=== PATIENT | male | born 1995 | race Caucasian/White ===

== ENCOUNTER 2016-09-22 15:36 | Emergency (ER) | payer SELFPAY ==
[2016-09-22 16:28] LABS: Eosinophils % (Auto) 2.3 % (0.0-4.3); Hematocrit 44.4 % (35.5-45.6); Hemoglobin 15.1 gm/dl (11.8-15.2); Mean Corpuscular HGB Conc 34 % (32-34); Mean Corpuscular Hemoglobin 31 pg (28-32); Mean Corpuscular Volume 90 fl (84-94); Platelet Count 193 K/mm3 (140-440); Red Blood Count 4.92 M/mm3 (3.65-5.03); Red Cell Distribution Width 13.4 % (13.2-15.2); White Blood Count 10.6 K/mm3 (4.5-11.0)
[2016-09-22 16:31] LABS: Urine Drugs of Abuse Note Disclamer
[2016-09-22 16:33] LABS: Anion Gap 18 mmol/L; Blood Urea Nitrogen 21 mg/dL (9-20); Calcium 9.7 mg/dL (8.4-10.2); Carbon Dioxide 27 mmol/L (22-30); Chloride 101.4 mmol/L (98-107); Glucose 72 mg/dL (75-100); Potassium 4.7 mmol/L (3.6-5.0); Sodium 142 mmol/L (137-145)
[2016-09-22 16:49] LABS: Bacteria,Urine 1+ /HPF (Negative); Bilirubin,Urine NEG (Negative); Blood,Urine NEG (Negative); Ketones,Urine TR mg/dL (Negative); Leukocyte Esterase,Urine NEG (Negative); Mucus,Urine 3+ /HPF; Nitrite,Urine NEG (Negative); Urobilinogen,Urine < 2.0 mg/dL (<2.0)
--- NOTE | 2016-09-22 16:51 | Emergency Department Report ---
ED Psych HPI - General Chief Complaint: Psych Stated Complaint: CESAR EVMINAL Time Seen by Provider: 09/22/16 16:49 Source: family Mode of arrival: Ambulatory - History of Present Illness Initial Comments: Patient is a 21-year-old male who is brought in by his parents for concern for suicidal ideation. Patient denies suicidal ideation he states that he hears voices from "time to time". Patient was recently incarcerated and try to commit suicide patient has never been seen by psychiatrist. He states that he is in no pain and the voices told him to do "all sorts of things." Further history is limited by patient refusing to speak. History obtained from father states that patient tries to cut himself at home and he is afraid that if he goes home that he'll try to kill himself. - Related Data Home Medications Medication Instructions Recorded Confirmed Last Taken No Known Home Medications [No 09/22/16 09/22/16 Unknown Reported Home Medications] Allergies Allergy/AdvReac Type Severity Reaction Status Date / Time No Known Allergies Allergy Verified 09/22/16 15:58 ED Review of Systems ROS: Stated complaint: MH EVAL Other details as noted in HPI Constitutional: denies: chills, fever Eyes: denies: eye pain, eye discharge, vision change ENT: denies: ear pain, throat pain Respiratory: denies: cough, shortness of breath, wheezing Cardiovascular: denies: chest pain, palpitations Endocrine: no symptoms reported Gastrointestinal: denies: abdominal pain, nausea, diarrhea Genitourinary: denies: urgency, dysuria Musculoskeletal: denies: back pain, joint swelling, arthralgia Skin: denies: rash, lesions Neurological: denies: headache, weakness, paresthesias Psychiatric: anxiety, auditory hallucinations. denies: homicidal thoughts, suicidal thoughts Hematological/Lymphatic: denies: easy bleeding, easy bruising ED Past Medical Hx - Past Medical History Previous Medical History?: Yes Hx Psychiatric Treatment: Yes - Surgical History Past Surgical History?: No - Social History Smoking Status: Current Every Day Smoker Substance Use Type: None - Medications Home Medications: Home Medications Medication Instructions Recorded Confirmed Last Taken Type No Known Home Medications [No 09/22/16 09/22/16 Unknown History Reported Home Medications] ED Physical Exam - General Limitations: No Limitations General appearance: alert, in no apparent distress, anxious - Head Head exam: Present: atraumatic, normocephalic - Eye Eye exam: Present: normal appearance, EOMI - ENT ENT exam: Present: normal exam - Neck Neck exam: Present: normal inspection - Respiratory Respiratory exam: Present: normal lung sounds bilaterally - Cardiovascular Cardiovascular Exam: Present: regular rate, normal rhythm - GI/Abdominal GI/Abdominal exam: Present: soft - Rectal Rectal exam: Present: deferred - Extremities Exam Extremities exam: Present: normal inspection, full ROM - Neurological Exam Neurological exam: Present: alert, CN II-XII intact. Absent: motor sensory deficit - Psychiatric Psychiatric exam: Present: agitated, anxious, flat affect. Absent: suicidal ideation - Skin Skin exam: Present: warm, dry ED Course Vital Signs 09/22/16 15:55 Temperature 97.7 F Pulse Rate 69 Respiratory 16 Rate Blood Pressure 101/67 O2 Sat by Pulse 100 Oximetry - Reevaluation(s) Reevaluation #1: 09/22/16 19:38 Patient became more combative and states that he wants to leave by speaking with father and given patient's history of recent suicide wall place a 1013 on patient and have him evaluated by the mental health worker to see if he can go home. Reevaluation #2: 09/22/16 23:44 Discussed with mental health worker patient will be except to [place]. He is in no acute distress but is still agitated. ED Medical Decision Making - Lab Data Result diagrams: 09/22/16 16:04 09/22/16 16:04 Laboratory Results - last 24 hr 09/22/16 09/22/16 09/22/16 16:04 16:04 16:04 WBC 10.6 RBC 4.92 Hgb 15.1 Hct 44.4 MCV 90 MCH 31 MCHC 34 RDW 13.4 Plt Count 193 Lymph % (Auto) 41.9 H Ware % (Auto) 8.8 H Eos % (Auto) 2.3 Baso % (Auto) 1.0 Lymph # 4.4 Ware # 0.9 H Eos # 0.2 Baso # 0.1 Seg Neutrophils % 46.0 Seg Neutrophils # 4.9 Sodium 142 Potassium 4.7 Chloride 101.4 Carbon Dioxide 27 Anion Gap 18 BUN 21 H Creatinine 1.2 Estimated GFR > 60 BUN/Creatinine Ratio 17.50 Glucose 72 L Calcium 9.7 Urine Color Urine Turbidity Urine pH Ur Specific [place] Urine Protein Urine Glucose (UA) Urine Ketones Urine Blood Urine Nitrite Urine Bilirubin Urine Urobilinogen Ur Leukocyte Esterase Urine WBC (Auto) Urine RBC (Auto) U Epithel Cells (Auto) Urine Bacteria (Auto) Urine Mucus Urine Opiates Screen Urine Methadone Screen Ur Barbiturates Screen Ur Phencyclidine Scrn Ur Amphetamines Screen U Benzodiazepines Scrn Urine Cocaine Screen U Marijuana (THC) Screen Drugs of Abuse Note Plasma/Serum Alcohol < 0.01 09/22/16 09/22/16 16:27 16:27 WBC RBC Hgb Hct MCV MCH MCHC RDW Plt Count Lymph % (Auto) Ware % (Auto) Eos % (Auto) Baso % (Auto) Lymph # Ware # Eos # Baso # Seg Neutrophils % Seg Neutrophils # Sodium Potassium Chloride Carbon Dioxide Anion Gap BUN Creatinine Estimated GFR BUN/Creatinine Ratio Glucose Calcium Urine Color Yellow Urine Turbidity Clear Urine pH 6.0 Ur Specific [place] 1.032 H Urine Protein 30 mg/dl Urine Glucose (UA) Neg Urine Ketones Tr Urine Blood Neg Urine Nitrite Neg Urine Bilirubin Neg Urine Urobilinogen < 2.0 Ur Leukocyte Esterase Neg Urine WBC (Auto) 3.0 Urine RBC (Auto) 4.0 U Epithel Cells (Auto) 1.0 Urine Bacteria (Auto) 1+ Urine Mucus 3+ Urine Opiates Screen Presumptive negative Urine Methadone Screen Presumptive negative Ur Barbiturates Screen Presumptive negative Ur Phencyclidine Scrn Presumptive negative Ur Amphetamines Screen Presumptive negative U Benzodiazepines Scrn Presumptive negative Urine Cocaine Screen Presumptive negative U Marijuana (THC) Screen Presumptive positive Drugs of Abuse Note Disclamer Plasma/Serum Alcohol - Medical Decision Making Chief medical diagnosis: Substance induced mood disorder Differential medical diagnosis: Psychosis, alcohol intoxication, bipolar disorder. We'll get CBC CMP urine drug screen UA ethanol level and will get mental health evaluation. We'll place 1013 on patient due to history of prior suicide attempts patient is not open with a history of suicidal ideation he states that "I don't want to talk about it "when brought up patient is also becoming agitated and appears to be reacting to internal stimuli will have patient be evaluated by mental worker. Critical care attestation.: If time is entered above; I have spent that time in minutes in the direct care of this critically ill patient, excluding procedure time. ED Disposition Clinical Impression: Substance induced mood disorder Disposition: [id number]/TX-[id number] PSY HOSP/PSY UNIT Is pt being admited?: No Does the pt Need Aspirin: No Condition: Stable Time of Disposition: 23:43
[2016-09-22] MEDS ORDERED: HALDOL IM ONE (19:03)
[2016-09-22] MEDS ORDERED: ATIVAN IM ONE (19:04)
[2016-09-23 04:59] VITALS: BP 110/88
== END 2016-09-23 08:00 ==
LOC: ED 15:36 → EEVIPCON 15:36 → ED 09-23 08:00
DX: F15.94 Other stimulant use, unspecified with stimulant-induced mood disorder (principal); F17.200 Nicotine dependence, unspecified, uncomplicated
CPT/HCPCS: 36415; 80048; 80307; 81001; 85025; 96372; 99285; G0480; J1630; 80320

== ENCOUNTER 2019-03-23 00:13 | Emergency (ER) | payer SELFPAY ==
[2019-03-23 01:03] VITALS: BP 134/81
== END 2019-03-23 00:50 | disposition left against medical advice (07) ==
LOC: ED 00:13
DX: F41.9 Anxiety disorder, unspecified (principal); Z53.21 Procedure and treatment not carried out due to patient leaving prior to being seen by health care provider

== ENCOUNTER 2020-11-28 10:17 | Emergency (ER) | payer OTHER ==
[2020-11-28 10:22] VITALS: BP 122/83
[2020-11-28] MEDS ORDERED: NEOMY 3.5 MG/BACIT 400 UNITS/POLY B 5000 UNITS/GM OINT PACKET TP ONE (10:38)
[2020-11-28] MEDS ORDERED: TETANUS,DIPH,PERTUSS(ACELL) VACCINE 0.5 ML SYRINGE IM ONE (10:38)
--- NOTE | 2020-11-28 10:43 | Emergency Department Report ---
- General Chief Complaint: Wound/Laceration Stated Complaint: LEFT HAND LACERATION/X 2 DAYS AGO Time Seen by Provider: 11/28/20 10:32 Source: patient Mode of arrival: Ambulatory Limitations: No Limitations - History of Present Illness Initial Comments: Patient is a 25-year-old male presents emergency room complaints of lacerations present to the right digits that occurred 2 days ago. Patient states he was cutting an apple vertically and accidentally slipped and cut his hand. He states initially there was bleeding but it is since improved. He states that he has had some swelling of the fingers and saw small amount of drainage. He denies any numbness or weakness. He is still able to make a fist. He is unsure of his last tetanus immunization. He denies any past medical history or allergies to medications. - Related Data Previous Rx's Medication Instructions Recorded Last Taken Type Mupirocin [Bactroban 2% OINT] 1 applic TP TID #1 tube 11/28/20 Unknown Rx cephALEXin [Keflex] 500 mg PO QID 7 Days #28 cap 11/28/20 Unknown Rx Allergies Allergy/AdvReac Type Severity Reaction Status Date / Time No Known Allergies Allergy Verified 11/28/20 10:22 ED Review of Systems ROS: Stated complaint: LEFT HAND LACERATION/X 2 DAYS AGO Other details as noted in HPI Comment: All other systems reviewed and negative ED Past Medical Hx - Past Medical History Hx Psychiatric Treatment: Yes (anxiety) - Social History Smoking Status: Current Every Day Smoker Substance Use Type: Alcohol - Medications Home Medications: Home Medications Medication Instructions Recorded Confirmed Last Taken Type Mupirocin [Bactroban 2% OINT] 1 applic TP TID #1 tube 11/28/20 Unknown Rx cephALEXin [Keflex] 500 mg PO QID 7 Days #28 cap 11/28/20 Unknown Rx ED Physical Exam - General Limitations: No Limitations General appearance: alert, in no apparent distress - Head Head exam: Present: atraumatic, normocephalic - Eye Eye exam: Present: normal appearance - ENT ENT exam: Present: mucous membranes moist - Extremities Exam Extremities exam: Present: full ROM (no muscle or tendon involvement, FROM of the left hand, neurovascularly intact, mild edema of the right pinky finger, no erythema), other (1 cm laceration present to the right pinky palmar surface, 1 cm laceration present to the right ring finger palmar surface, abrasion to the right middle finger palmar surface, no active bleeding, no drainage, no fluctuance, no erythema, no visualized or palpable foreign bodies) - Neurological Exam Neurological exam: Present: alert, oriented X3 - Psychiatric Psychiatric exam: Present: normal affect, normal mood - Skin Skin exam: Present: warm, dry ED Course Vital Signs 11/28/20 10:22 Temperature 98.0 F Pulse Rate 73 Respiratory 19 Rate Blood Pressure 122/83 O2 Sat by Pulse 99 Oximetry ED Medical Decision Making - Medical Decision Making Patient is a 25-year-old male presents emergency room complaints of lacerations present to the right digits that occurred 2 days ago. Patient states he was cutting an apple vertically and accidentally slipped and cut his hand. He states initially there was bleeding but it is since improved. He states that he has had some swelling of the fingers and saw small amount of drainage. He denies any numbness or weakness. He is still able to make a fist. He is unsure of his last tetanus immunization. He denies any past medical history or allergies to medications. Vitals are normal. On exam:1 cm laceration present to the right pinky palmar surface, 1 cm laceration present to the right ring finger palmar surface, abrasion to the right middle finger palmar surface, no active bleeding, no drainage, no fluctuance, no erythema, no visualized or palpable foreign bodies, no muscle or tendon involvement, FROM of the left hand, neurovascularly intact, mild edema of the right pinky finger, no erythema. No signs of significant cellulitis or abscess formation at this time. Patient does have full range of motion, do not suspect ligamentous or tendon injury. Lacerations appear superficial and there is no active bleeding. Lacerations have been open greater than 12 hours, due to significant risk of infection, will not repair lacerations, skin is approximated enough that it can heal via secondary intention. Wound care performed by manager summer and patient given tetanus immunization. Discussed the importance of follow-up to have area reexamined. Discussed strict return precautions and signs of infection. Patient given prescription for mupirocin and Keflex. Advised patient Please use medication as prescribed. Please keep areas clean, dry, covered. Wash with antibacterial soap and water pat dry. No hot tub, no pool. Follow-up with your primary care doctor. Return to emergency room for any new or worsening symptoms. Critical care attestation.: If time is entered above; I have spent that time in minutes in the direct care of this critically ill patient, excluding procedure time. ED Disposition Clinical Impression: Laceration of finger of right hand Qualifiers: Encounter type: initial encounter Finger: little finger Damage to nail status: without damage Foreign body presence: without foreign body Qualified Code(s): S61.216A - Laceration without foreign body of right little finger without damage to nail, initial encounter Disposition: HOME / SELF CARE / HOMELESS Is pt being admited?: No Does the pt Need Aspirin: No Condition: Stable Instructions: Wound Care, Adult, VIS, Tetanus, Diphtheria, and Pertussis (Tdap) - CDC (05/26/2019) Additional Instructions: Please use medication as prescribed. Please keep areas clean, dry, covered. Wash with antibacterial soap and water pat dry. No hot tub, no pool. Follow-up with your primary care doctor. Return to emergency room for any new or worsening symptoms. Prescriptions: Mupirocin [Bactroban 2% OINT] 1 applic TP TID #1 tube cephALEXin [Keflex] 500 mg PO QID 7 Days #28 cap Referrals: RYLIE HURT MD [Staff Physician] - 3-5 Days [facility] [Provider Group] - 3-5 Days Time of Disposition: 10:44 Print Language: BELGIAN
== END 2020-11-28 11:07 | disposition home or self-care (01) ==
LOC: ED 10:17
DX: S61.214A Laceration without foreign body of right ring finger without damage to nail, initial encounter (principal); S61.216A Laceration without foreign body of right little finger without damage to nail, initial encounter; F17.200 Nicotine dependence, unspecified, uncomplicated; F10.20 Alcohol dependence, uncomplicated; W26.0XXA Contact with knife, initial encounter; Y93.89 Activity, other specified; Y92.89 Other specified places as the place of occurrence of the external cause; Y99.8 Other external cause status
CPT/HCPCS: 90471; 90715; 99282; A6250

== ENCOUNTER 2021-04-23 14:23 | Emergency (ER) | payer OTHER | END 2021-04-23 17:28 | disposition home or self-care (01) | LOC: ED 14:23 | DX: T14.8XXA Other injury of unspecified body region, initial encounter (principal); Z53.21 Procedure and treatment not carried out due to patient leaving prior to being seen by health care provider ==

== ENCOUNTER 2021-06-27 11:39 | Emergency (ER) | payer OTHER ==
[2021-06-27 12:44] LABS: Eosinophils # (Auto) 0.2 K/mm3 (0.0-0.4); Eosinophils % (Auto) 4.7 % (0.0-4.3); Hematocrit 42.8 % (35.5-45.6); Hemoglobin 14.4 gm/dl (11.8-15.2); Lymphocytes # (Auto) 1.7 K/mm3 (1.2-5.4); Lymphocytes % (Auto) 38.6 % (13.4-35.0); Mean Corpuscular HGB Conc 34 % (32-34); Mean Corpuscular Volume 89 fl (84-94); Monocytes # (Auto) 0.3 K/mm3 (0.0-0.8); Monocytes % (Auto) 6.4 % (0.0-7.3); Platelet Count 233 K/mm3 (140-440); Red Blood Count 4.83 M/mm3 (3.65-5.03); Red Cell Distribution Width 13.4 % (13.2-15.2)
[2021-06-27 12:51] LABS: BUN/Creatinine Ratio 12; Blood Urea Nitrogen 11 mg/dL (9-20); Calcium 9.4 mg/dL (8.4-10.2); Hemolysis Index 6
--- NOTE | 2021-06-27 13:23 | Emergency Department Report ---
ED Psych HPI - General Chief Complaint: Psych Stated Complaint: 1013 Time Seen by Provider: 06/27/21 11:50 Source: patient, police Mode of arrival: Ambulatory - History of Present Illness Initial Comments: Patient is 25 years old male with history of bipolar disorder. Patient brought to the emergency room by his mother for mental health evaluation. Mother is not available at the time of the exam. Patient stated that he is out of his psychiatric medication because he cannot afford it and he has episode of being angry and destructive especially in the morning and his mother does not understand that so there is a court order for 1013 according to the patient report. Patient denies any suicidal or homicidal ideation. He also denied any visual or auditory hallucination. MD Complaint: altered mental status - Related Data Previous Rx's Medication Instructions Recorded Last Taken Type Mupirocin [Bactroban 2% OINT] 1 applic TP TID #1 tube 11/28/20 Unknown Rx cephALEXin [Keflex] 500 mg PO QID 7 Days #28 cap 11/28/20 Unknown Rx Allergies Allergy/AdvReac Type Severity Reaction Status Date / Time No Known Allergies Allergy Verified 11/28/20 10:22 ED Review of Systems ROS: Stated complaint: 1013 Other details as noted in HPI Comment: All other systems reviewed and negative Constitutional: denies: chills, fever Respiratory: denies: cough, shortness of breath, SOB with exertion Cardiovascular: denies: chest pain, palpitations Gastrointestinal: denies: abdominal pain, nausea, vomiting Musculoskeletal: denies: back pain Neurological: denies: headache, weakness, numbness, paresthesias, confusion Psychiatric: anxiety. denies: auditory hallucinations, visual hallucinations, suicidal thoughts ED Past Medical Hx - Past Medical History Hx Psychiatric Treatment: Yes (anxiety) - Social History Smoking Status: Current Every Day Smoker Substance Use Type: Alcohol - Medications Home Medications: Home Medications Medication Instructions Recorded Confirmed Last Taken Type Mupirocin [Bactroban 2% OINT] 1 applic TP TID #1 tube 11/28/20 Unknown Rx cephALEXin [Keflex] 500 mg PO QID 7 Days #28 cap 11/28/20 Unknown Rx ED Physical Exam - General Limitations: No Limitations General appearance: alert, in no apparent distress - Head Head exam: Present: atraumatic, normocephalic, normal inspection - Eye Eye exam: Present: normal appearance - ENT ENT exam: Present: normal exam, normal orophraynx, mucous membranes moist - Neck Neck exam: Present: normal inspection, full ROM. Absent: tenderness, meningismus - Respiratory Respiratory exam: Present: normal lung sounds bilaterally - Cardiovascular Cardiovascular Exam: Present: regular rate, normal rhythm, normal heart sounds - GI/Abdominal GI/Abdominal exam: Present: soft, normal bowel sounds. Absent: distended, tenderness, guarding, rebound, rigid, organomegaly, mass, bruit, pulsatile mass, hernia - Extremities Exam Extremities exam: Present: normal inspection, full ROM, normal capillary refill. Absent: tenderness, pedal edema, joint swelling, calf tenderness - Back Exam Back exam: Present: normal inspection, full ROM. Absent: CVA tenderness (R), CVA tenderness (L) - Neurological Exam Neurological exam: Present: alert, oriented X3, CN II-XII intact, normal gait, reflexes normal. Absent: motor sensory deficit - Psychiatric Psychiatric exam: Present: normal mood - Skin Skin exam: Present: warm, intact, normal color ED Course Vital Signs 06/27/21 06/27/21 11:54 12:17 Temperature 97.7 F Pulse Rate 68 Respiratory 16 17 Rate Blood Pressure 119/81 [Right] O2 Sat by Pulse 99 99 Oximetry ED Medical Decision Making - Lab Data Result diagrams: 06/27/21 12:00 06/27/21 12:00 Critical care attestation.: If time is entered above; I have spent that time in minutes in the direct care of this critically ill patient, excluding procedure time. ED Disposition Condition: Stable
[2021-06-27 14:11] LABS: Bilirubin,Urine NEG (Negative); Blood,Urine NEG (Negative); Color,Urine Yellow (Yellow); Hyaline Casts,Urine 1 /LPF; Mucus,Urine 3+ /HPF
[2021-06-27 14:12] LABS: Amphetamine Screen,Urine Negative; Benzodiazepines Screen,Urine Negative; Cocaine Screen,Urine Negative; Methadone Screen,Urine Negative; Opiate Screen,Urine Negative
[2021-06-27 15:09] LABS: Cannabinoid Screen,Urine Positive
[2021-06-27 16:21] VITALS: BP 125/79
== END 2021-06-27 16:21 ==
LOC: ED 11:39
DX: Z13.30 Encounter for screening examination for mental health and behavioral disorders, unspecified (principal); F17.200 Nicotine dependence, unspecified, uncomplicated; F10.20 Alcohol dependence, uncomplicated; F41.9 Anxiety disorder, unspecified; Z20.822 Contact with and (suspected) exposure to COVID-19
CPT/HCPCS: 36415; 80048; 80307; 81001; 85025; 99285; U0003; 80320; G0480

== ENCOUNTER 2021-09-23 13:33 | Emergency (ER) | payer OTHER ==
[2021-09-23 14:08] VITALS: BP 100/50
== END 2021-09-23 17:00 | disposition left against medical advice (07) ==
LOC: ED 13:33
DX: Z00.00 Encounter for general adult medical examination without abnormal findings (principal); Z53.21 Procedure and treatment not carried out due to patient leaving prior to being seen by health care provider

== ENCOUNTER 2021-11-14 16:50 | Emergency (ER) | payer SELFPAY ==
[2021-11-14 16:56] VITALS: BP 105/67
[2021-11-14 19:31] LABS: Alanine Aminotransferase 7 units/L (7-56); Albumin 4.5 g/dL (3.9-5); BUN/Creatinine Ratio 11; Blood Urea Nitrogen 10 mg/dL (9-20); Calcium 9.2 mg/dL (8.4-10.2); Hemolysis Index 9
[2021-11-14 19:35] LABS: Basophils % (Auto) 0.8 % (0.0-1.8); Eosinophils # (Auto) 0.3 K/mm3 (0.0-0.4); Eosinophils % (Auto) 5.4 % (0.0-4.3); Hematocrit 39.6 % (35.5-45.6); Hemoglobin 13.2 gm/dl (11.8-15.2); Lymphocytes # (Auto) 2.2 K/mm3 (1.2-5.4); Lymphocytes % (Auto) 43.1 % (13.4-35.0); Mean Corpuscular HGB Conc 33 % (32-34); Mean Corpuscular Volume 89 fl (84-94); Monocytes # (Auto) 0.4 K/mm3 (0.0-0.8); Monocytes % (Auto) 8.4 % (0.0-7.3); Platelet Count 215 K/mm3 (140-440); Red Blood Count 4.46 M/mm3 (3.65-5.03); Red Cell Distribution Width 13.2 % (13.2-15.2)
--- NOTE | 2021-11-14 20:53 | Emergency Department Report ---
ED Psych HPI - General Chief Complaint: Psych Stated Complaint: MENTAL BREAK DOWN,AUDITORY HALLUCINATION Time Seen by Provider: 11/14/21 18:13 Source: patient, EMS Mode of arrival: Stretcher - History of Present Illness Initial Comments: 26-year-old male with a history of psychosis says that he has been feeling like he is having mental breakdown says that he is hearing voices with babies talking to him says that he feels he has not taken his medicine his medicine is working denies having any homicidal suicidal ideation. MD Complaint: feels depressed -: Gradual Associated Psychiatric Symptoms: depression, racing thoughts, auditory hallucinations Quality: intermittent Improves With: none Associated Symptoms: denies other symptoms Treatments Prior to Arrival: none, placed on mental he - Related Data Previous Rx's Medication Instructions Recorded Last Taken Type Mupirocin [Bactroban 2% OINT] 1 applic TP TID #1 tube 11/28/20 Unknown Rx cephALEXin [Keflex] 500 mg PO QID 7 Days #28 cap 11/28/20 Unknown Rx Allergies Allergy/AdvReac Type Severity Reaction Status Date / Time No Known Allergies Allergy Verified 11/14/21 16:56 ED Review of Systems ROS: Stated complaint: MENTAL BREAK DOWN,AUDITORY HALLUCINATION Other details as noted in HPI Constitutional: denies: chills, fever Eyes: denies: eye pain, eye discharge, vision change ENT: denies: ear pain, throat pain Respiratory: denies: cough, shortness of breath, wheezing Cardiovascular: denies: chest pain, palpitations Endocrine: no symptoms reported Gastrointestinal: denies: abdominal pain, nausea, diarrhea Skin: denies: rash, lesions Neurological: denies: headache, weakness, paresthesias Psychiatric: anxiety, auditory hallucinations Hematological/Lymphatic: denies: easy bleeding, easy bruising ED Past Medical Hx - Past Medical History Hx Psychiatric Treatment: Yes (anxiety) - Social History Smoking Status: Never Smoker - Medications Home Medications: Home Medications Medication Instructions Recorded Confirmed Last Taken Type Mupirocin [Bactroban 2% OINT] 1 applic TP TID #1 tube 11/28/20 Unknown Rx cephALEXin [Keflex] 500 mg PO QID 7 Days #28 cap 11/28/20 Unknown Rx ED Physical Exam - General Limitations: No Limitations General appearance: alert, in no apparent distress - Head Head exam: Present: atraumatic, normocephalic, normal inspection - Eye Eye exam: Present: normal appearance, PERRL - ENT ENT exam: Present: normal exam, normal orophraynx, mucous membranes moist - Neck Neck exam: Present: normal inspection, full ROM - Cardiovascular Cardiovascular Exam: Present: regular rate, normal rhythm. Absent: systolic murmur, diastolic murmur, rubs, gallop - GI/Abdominal GI/Abdominal exam: Present: soft, normal bowel sounds. Absent: distended, tenderness - Back Exam Back exam: Present: normal inspection, full ROM - Neurological Exam Neurological exam: Present: alert, oriented X3, CN II-XII intact - Psychiatric Psychiatric exam: Present: normal affect, normal mood - Skin Skin exam: Present: warm, dry ED Course Vital Signs 11/14/21 11/14/21 16:55 17:35 Temperature 98 F Pulse Rate 74 Respiratory 14 Rate Blood Pressure 105/67 [Left] O2 Sat by Pulse 97 99 Oximetry ED Medical Decision Making - Lab Data Result diagrams: 11/14/21 18:51 11/14/21 18:51 Critical care attestation.: If time is entered above; I have spent that time in minutes in the direct care of this critically ill patient, excluding procedure time. ED Disposition Clinical Impression: Psychosis Disposition: [address] [place] [address] Is pt being admited?: No Does the pt Need Aspirin: No Condition: Stable
--- NOTE | 2021-11-15 12:22 | Consultation ---
History of Present Illness - Reason for Consult Consult date: 11/15/21 Reason for consult: psychosis - History of Present Psychiatric Illness Patient is a 26 yo male with history of bipolar and schizophrenia who presents to ER with chief complaint of psychosis. Patient was alert and oriented x3 and cooperative throughout the interview. Patient reports being stable on his medications and recently ran out. Patient is requesting refill on his medications. Patient reports 4 suicide attempts with most recent in 2017 by self-inflicted laceration to his left wrist. Patient reports having non-command auditory hallucinations of babies crying and "weird slits and paper cuts," last night. Patient denies recent drug use but reports hx of marijuana and alcohol use months ago. Patient reports feeling "a lot better." Patient reports good social support and denies SI HI AVH at present. PAST PSYCHIATRIC HISTORY: Diagnoses: bipolar disorder, schizophrenia Suicide attempts or Self-harm behavior: Yes Prior psychiatric hospitalizations: Yes Substance Abuse history: Marijuana, alcohol Previous psychiatric medications tried: risperdal, zoloft, vistaril, invega Outpatient treatment: Denies PAST MEDICAL HISTORY: Seizures, GERD, peripheral edema SOCIAL HISTORY Marital Status: Single Living Arrangements: With family Employment Status: Employed Access to guns/weapons: Denies Education: High school History of Abuse: Denies Legal History: Yes - trespassing MENTAL STATUS EXAMINATION General Appearance and Behavior: Age appropriate, good hygiene, pleasant, good eye contact Cooperation: Cooperative Psychomotor Behavior: Psychomotor mattie' Mood: "a lot better now," Affect and affective range: congruent with stated mood, calm Thought Process: goal directed Thought Content: reality-based Speech: Normal volume, regular rate and rhythm Suicidal Ideation: Denies Homicidal Ideation: Denies Hallucinations: Denies Delusions: None elicited Impulse Control: Fair Insight and Judgment: Fair Memory: Fair Attention: Attentive Orientation: Oriented x3 ASSESSMENT: Schizophrenia Bipolar TREATMENT: Restart medications - vistaril 50 mg - zoloft 50 mg - risperdal 2 mg - advised patient to follow up with outpatient provider Risks, benefits and alternatives of medications discussed with the patient, questions answered and consent obtained from patient The patient should be compliant with medications, not to use drugs, and not to drink alcohol. The patient understands that if suicidal ideas, homicidal ideas or any endangering feeling arise, the patient should seek assistance including, but not limited to crisis hotline, and emergency room. PSYCHOTHERAPY: Supportive psychotherapy provided MEDICAL: Per primary team DISPOSITION: Do not recommend acute inpatient psychiatric hospitalization at this time. Mental health blade balancer will provide outpatient psychiatric resources and information on drug rehabilitation programs. FOLLOW-UP: Will sign off. Thank you for the consult. Please contact with any questions and/or concerns. Case staffed with Dr. Karina Aparicio. Medications and Allergies Allergies Allergy/AdvReac Type Severity Reaction Status Date / Time No Known Allergies Allergy Verified 11/14/21 16:56 Home Medications Medication Instructions Recorded Confirmed Last Taken Type Mupirocin [Bactroban 2% OINT] 1 applic TP TID #1 tube 11/28/20 Unknown Rx cephALEXin [Keflex] 500 mg PO QID 7 Days #28 cap 11/28/20 Unknown Rx Sertraline [Zoloft] 50 mg PO QDAY 30 Days #30 tab 11/15/21 Unknown Rx hydrOXYzine PAMOATE [Vistaril] 50 mg PO Q6HR PRN 30 Days #60 11/15/21 Unknown Rx capsule risperiDONE [RisperDAL] 2 mg PO QHS 30 Days #30 tab 11/15/21 Unknown Rx Mental Status Exam - Vital signs Last Vital Signs Temp 98 F 11/14/21 16:55 Pulse 74 11/14/21 16:55 Resp 14 11/14/21 16:55 BP 105/67 11/14/21 16:55 Pulse Ox 99 11/14/21 17:35 Results Result Diagrams: 11/14/21 18:51 11/14/21 18:51 Abnormal lab results 11/14/21 Range/Units 18:51 Lymph % (Auto) 43.1 H (13.4-35.0) % Gonzales % (Auto) 8.4 H (0.0-7.3) % Eos % (Auto) 5.4 H (0.0-4.3) % All other labs normal.
--- NOTE | 2021-11-15 14:07 | Emergency Department Report ---
Blank Doc - Documentation Documentation: 26-year-old male with bipolar disorder and schizophrenia, placed on 1013 hold by , secondary Per chart review, the pt was seen/evaluated by psychiatry. Pt deemed cleared for discharge. 1013 rescinded. I evaluated the patient independently. He is comfortable and well-appearing. Patient is typing on his personal cell of telephone he states he is "ready to get out of here." He denies any active homicidal or suicidal ideations to this provider. He does not appear to be responding to any internal stimuli. Patient is stable for discharge home.
== END 2021-11-15 14:00 | disposition home or self-care (01) ==
LOC: ED 16:50
DX: F29 Unspecified psychosis not due to a substance or known physiological condition (principal); F41.9 Anxiety disorder, unspecified
CPT/HCPCS: 36415; 80053; 80320; 85025; 99284; G0480